=== PATIENT | female | born 1995 | race American Indian/Alaskan Native ===

== ENCOUNTER 2017-09-16 02:31 | Emergency (ER) | payer MEDICAID, OTHER ==
[2017-09-16] MEDS ORDERED: Albuterol 0.083% Inhal Sol (2.5 mg/3 mL) UD IH STA (03:16)
[2017-09-16] MEDS ORDERED: guaiFENesin 100 mg/5 ml Syrup UD PO STA (03:16)
[2017-09-16] MEDS ORDERED: guaiFENesin 100 mg/5 ml Syrup UD ONE (03:28)
[2017-09-16] MEDS ORDERED: Albuterol 0.083% Inhal Sol (2.5 mg/3 mL) UD ONE (03:42)
[2017-09-16 04:54] LABS: BASO # 0.1 K/uL (0.0-0.2); BASO % 0.8 % (0.0-2.0); EOS # 3.4 K/uL (0.0-0.7); EOS % 28.2 % (0.0-4.0); HEMOGLOBIN 11.8 g/dL (11.0-16.0); LYMPH # 3.1 K/uL (1.0-4.3); LYMPH % 25.7 % (20.0-40.0); MEAN CELL VOLUME 79.8 fL (81.0-99.0); MEAN CORPUSCULAR HEMOGLOBIN 26.5 pg (27.0-31.0); MEAN CORPUSCULAR HGB CONC 33.2 g/dL (33.0-37.0); MEAN PLATELET VOLUME 7.2 fL (7.2-11.7); MONO # 0.6 K/uL (0.0-0.8); MONO % 4.7 % (0.0-10.0); NEUT # 4.9 K/uL (1.8-7.0); NEUT % 40.6 % (50.0-75.0); NRBC % 0.1 % (0.0-2.0); PLATELET COUNT 536 K/uL (130-400); RBC 4.45 Mil/uL (3.80-5.20); RED CELL DISTRIBUTION WIDTH 14.4 % (11.5-14.5); WHITE BLOOD COUNT 12.1 K/uL (4.8-10.8)
[2017-09-16 05:09] LABS: ALB/GLOB RATIO 1.1 (1.0-2.1); ALT/SGPT 27 U/L (9-52); AST/SGOT 19 U/L (14-36); BLOOD UREA NITROGEN 7 mg/dL (7-17); CALCIUM 9.1 mg/dl (8.6-10.4); GFR AFRICAN-AMERICAN > 60; GFR NON-AFRICAN AMERICAN > 60
[2017-09-16] MEDS ORDERED: Iodixanol 320 MG/ML 100 ML BOTTLE IV ONE (05:52)
[2017-09-16 05:56] LABS: BASOPHIL 1 % (0-2); EOSINOPHIL 27 % (0-4); LYMPHOCYTE 27 % (20-40); MONOCYTE 7 % (0-10); NEUTROPHIL 38 % (50-75); PLATELET ESTIMATE NORMAL (NORMAL); TOTAL CELLS COUNTED 100
[2017-09-16 05:57] LABS: ANISOCYTOSIS SLIGHT
--- NOTE | 2017-09-16 05:58 | C.PDOC ---
History Of Present Illness 22 year old female presents to the ER with a complaint of productive cough for the past 4 weeks that has become more persistent today. Patient reports she has pain to her chest when coughing. She was seen at [facility] multiple times this month and was treated for pneumonia on 09/07/17. Denies fever, difficulty swallowing, headache, n/v or SOB. Time Seen by Provider: 09/16/17 02:42 Chief Complaint (Nursing): Cough, Cold, Congestion History Per: Patient History/Exam Limitations: no limitations Onset/Duration Of Symptoms: Days Current Symptoms Are (Timing): Still Present Associated Symptoms: Cough, Sputum. denies: Fever, Chills Ear Symptoms: Bilateral: None Recent travel outside of the [place]: No Past Medical History Reviewed: Historical Data, Nursing Documentation, Vital Signs Vital Signs: Last Vital Signs Temp 97.9 F 09/16/17 07:16 Pulse 64 09/16/17 07:16 Resp 16 09/16/17 07:16 BP 99/54 L 09/16/17 07:16 Pulse Ox 100 09/16/17 07:16 - Medical History PMH: Pneumonia Denies: Chronic Kidney Disease Family History: States: Unknown Family Hx - Social History Hx Tobacco Use: No Hx Alcohol Use: No Hx Substance Use: No - Immunization History Hx Tetanus Toxoid Vaccination: Yes Hx Influenza Vaccination: Yes Hx Pneumococcal Vaccination: Yes Review Of Systems Constitutional: Negative for: Fever, Chills Respiratory: Positive for: Cough, Sputum. Negative for: Shortness of Breath Gastrointestinal: Negative for: Nausea, Vomiting Musculoskeletal: Positive for: Other (Chest wall pain with cough) Physical Exam - Physical Exam Appears: Non-toxic, No Acute Distress (pt is laying flat, no frequent cough, no respiratory distress) Skin: Normal Color, Warm, Dry Head: Atraumatic, Normacephalic Eye(s): bilateral: Normal Inspection, EOMI Ear(s): Bilateral: Normal Nose: Normal Oral Mucosa: Moist Throat: Normal, No Erythema, No Exudate, No Drooling Neck: Normal, Normal ROM, Supple Chest: Symmetrical, No Tenderness Cardiovascular: Rhythm Regular Respiratory: Normal Breath Sounds, No Accessory Muscle Use, No Rales, No Rhonchi , No Wheezing Gastrointestinal/Abdominal: Soft, No Tenderness Extremity: Normal ROM Neurological/Psych: Oriented x3, Normal Speech Gait: Steady ED Course And Treatment - Laboratory Results Result Diagrams: 09/16/17 04:49 09/16/17 04:49 O2 Sat by Pulse Oximetry: 98 (Room air) Pulse Ox Interpretation: Normal - Radiology CXR: Interpreted by Me, Viewed By Me CXR Interpretation: Yes: No Acute Disease Progress Note: CTA, EKG, blood work, and CXR ordered. Robitussin, toradol, and albuterol nebulizer administered. On re-evaluation, cough improved. Patient is resting comfortably with no wheezing, chest pain, or retractions. Oxygen saturation WNL. Pt was offered admission, notes she feels better and does not want to stay. WBC-12, afebrile, no PMH, pulse ox 98% therefore will try outpt treatment. Disucssed CT results, copy given and instructed strict follow up. Patient was advised to follow up with physician/clinic in 1-2 days and return to ED if symptoms worsen or persist. Case discussed with Dr Tripp, agreed upon plan, treatment and discharge. Disposition - Disposition Disposition: HOME/ ROUTINE Disposition Time: 06:59 Condition: STABLE Additional Instructions: Follow up with your primary medical doctor or clinic in 2-5 days for further evaluation. Take medications as prescribed. Return to the emergency department at any time if symptoms persist or worsen. Prescriptions: Albuterol HFA [Ventolin HFA 90 mcg/actuation (8 g)] 2 puff IH [id number] PRN #1 puff PRN Reason: Shortness Of Breath Benzonatate [Tessalon Perle] 100 mg PO TID PRN #15 capsule PRN Reason: Cough Levofloxacin [Levaquin] 750 mg PO DAILY #5 tablet predniSONE [Prednisone] 40 mg PO DAILY #10 tab Instructions: Acute Bronchitis, Adult (DC) Forms: [employer] (Citizen Of [place]) - Clinical Impression Clinical Impression: Pneumonia - PA / [employer] / Resident Statement MD/DO has reviewed & agrees with the documentation as recorded. - Scribe Statement The provider has reviewed the documentation as recorded by the Stephenibtea Negro All medical record entries made by the Scribe were at my direction and personally dictated by me. I have reviewed the chart and agree that the record accurately reflects my personal performance of the history, physical exam, medical decision making, and the department course for this patient. I have also personally directed, reviewed, and agree with the discharge instructions and disposition.
[2017-09-16 06:49] VITALS: RESP 16
[2017-09-16 07:18] VITALS: BP 99/54; PULSE 64; TEMP 97.9
--- NOTE | 2017-09-16 08:00 | RAD ---
Date of service: 09/16/2017 HISTORY: cough COMPARISON: No prior. TECHNIQUE: Chest PA and lateral FINDINGS: LUNGS: Lateral left upper lobe airspace opacity with left pleural contact suggested PLEURA: No significant pleural effusion identified. No pneumothorax apparent. Lateral left upper lobe pleural-parenchymal opacity CARDIOVASCULAR: Normal. OSSEOUS STRUCTURES: No significant abnormalities. VISUALIZED UPPER ABDOMEN: Normal. OTHER FINDINGS: None. IMPRESSION: Lateral left upper lobe coalescent airspace opacity with left pleural contact suggested - infectious inflammatory etiology favored. Follow-up recommended
--- NOTE | 2017-09-16 14:51 | CT ---
Date of service: 09/16/2017 PROCEDURE: September 16, 2017. Two-view chest HISTORY: SOB COMPARISON: None available. TECHNIQUE: Axial computed tomography images were obtained of the chest in the pulmonary arterial phase of enhancement. Coronal and sagittal reformatted images were created and reviewed. Maximum intensity projection (MIP) reconstructed images in the following planes: Axial and sagittal planes Intravenous contrast dose: 100 cc Visipaque 320 Mean Hounsfield unit values in the main pulmonary artery: 324.11 Radiation dose: Total exam DLP = 163.75 mGy-cm. This CT exam was performed using one or more of the following dose reduction techniques: Automated exposure control, adjustment of the mA and/or kV according to patient size, and/or use of iterative reconstruction technique. FINDINGS: PULMONARY ARTERIES: Unremarkable. No pulmonary embolism. AORTA: No acute findings. No thoracic aortic aneurysm. LUNGS: Peripheral infiltrates affecting both segments of the left upper lobe. Superior segment of the left lower lobe is also affected Additional infiltrate seen in the superior segment of the right lower lobe. PLEURAL SPACES: Unremarkable. No effusion or pneumothorax. HEART: Unremarkable. No cardiomegaly. No significant pericardial effusion. LYMPH NODES: No lymphadenopathy. BONES, CHEST WALL: Unremarkable. No fracture or destructive lesion OTHER FINDINGS: Unremarkable. IMPRESSION: Unremarkable CT pulmonary angiogram. No pulmonary embolus. Multifocal airspace disease primarily affecting left lung and to lesser extent right lower lobe. The findings are likely infectious/inflammatory. Concordant results (preliminary interpretation) provided by [facility]. Procedure Completed: 06:10. Preliminary ([facility]) Report: Dictated and Authenticated: 07:12. Final Interpretation: 14:50.
[2017-09-25 12:27] VITALS: O2SAT 98
== END 2017-09-16 07:29 | disposition home or self-care (01) ==
LOC: C.ER 02:31
DX: J18.9 Pneumonia, unspecified organism (principal)
CPT/HCPCS: 71046; 71275; 80053; 85025; 85378; 94640; 96374; 99285; J1885; Q9967

== ENCOUNTER 2018-06-15 10:39 | Outpatient (CLI) | payer OTHER | END 2018-06-15 10:40 | disposition home or self-care (01) | LOC: C.RT 10:39 | DX: J45.909 Unspecified asthma, uncomplicated (principal) ==